=== PATIENT | female | born 1955 | race Two or more races ===

== ENCOUNTER 2021-02-09 06:51 | Inpatient (IN) | payer OTHER ==
[~2021-02-09] VITALS: Ht 162.6 cm; Wt 78.3 kg
[~2021-02-09 06:51] MED LIST: CYA100I PO; METF-370 PO; PAR20T PO; SIMV10TA84 PO
[2021-02-09] MEDS ORDERED: ceFAZolin 1GM/50ML 100 ML IV ONE (10:37)
[2021-02-09] MEDS ORDERED: NITROGLYCERIN 0.4 MG SL TAB SL PRN (12:00)
[2021-02-09] MEDS ORDERED: MORPHINE SULFATE INJECTION 2 MG/ML SYRG IV PRN (12:00)
[2021-02-09] MEDS ORDERED: HYDROcodone-ACET 5/325MG TAB PO PRN (12:00)
[2021-02-09] MEDS ORDERED: ceFAZolin 1GM/50ML 50 ML IV ONE (12:00)
[2021-02-09] MEDS ORDERED: ACETAMINOPHEN 500 MG TAB PO PRN (12:00)
[2021-02-09] MEDS ORDERED: ONDANSETRON HCL 4 MG/2 ML VIAL IV PRN (12:00)
[2021-02-09] MEDS ORDERED: LIDOCAINE 1%-Mpf/Epinephrine 1:200,000 ONE (12:01)
[2021-02-09] MEDS ORDERED: BUPIVACAINE 0.25% INJ 50ML VIAL ONE (12:01)
[2021-02-09] MEDS ORDERED: METHYLENE BLUE 0.5% 5MG/ML 10ml AMP IV ONE (12:02)
[2021-02-09] MEDS ORDERED: GLYCOPYRROLATE 0.2 MG/ML 1ML VIAL IV ONE (12:12)
[2021-02-09] MEDS ORDERED: NEOSTIGMINE 1 MG/ML INJ (10mg/10ML VIAL) IV ONE (12:12)
[2021-02-09] MEDS ORDERED: PHENYLEPHRINE HCL 10 MG/ML VL IV ONE (12:12)
[2021-02-09] MEDS ORDERED: fentaNYL CITRATE 100 MCG/2 ML VL ONE ×2 (12:18→14:41)
[2021-02-09] MEDS ORDERED: fentaNYL CITRATE 5 ML ONE (12:18)
[2021-02-09] MEDS ORDERED: MEPERIDINE HCL (25 MG/ML) 1ML VIAL ONE ×2 (12:18→13:12)
[2021-02-09] MEDS ORDERED: MIDAZOLAM HCL 2MG/2ML 2ml VIAL (1mg/ml) ONE (12:18)
[2021-02-09] MEDS ORDERED: PROPOFOL 10 MG/ML 20 ML IV ONE (12:33)
[2021-02-09] MEDS ORDERED: ROCURONIUM 10MG/ML 10ML VIAL IV ONE (12:33)
[2021-02-09] MEDS ORDERED: DexAMETHasone SOD PHOS 10MG/1ML VIAL INJ ONE (12:33)
[2021-02-09] MEDS ORDERED: hydrALAZINE HCL 20 MG/ML VL IV PRN (13:00)
[2021-02-09] MEDS ORDERED: LABETALOL HCL 5 MG/ML 4ML SYRINGE IV PRN (13:00)
[2021-02-09] MEDS ORDERED: MORPHINE SULFATE 4 MG/ML SYR/VIAL IV PRN (13:00)
[2021-02-09] MEDS ORDERED: MIDAZOLAM HCL 2MG/2ML 2ml VIAL (1mg/ml) IV PRN (13:00)
[2021-02-09] MEDS ORDERED: HYDROmorphone HCL 2 MG/ML VL IV PRN (13:00)
[2021-02-09] MEDS ORDERED: ePHEDrine SULFATE 50 MG/ML AMP IV PRN (13:00)
[2021-02-09] MEDS ORDERED: ACCU-CHEK COMFORT CURVE STRIP VI ONE (13:00)
[2021-02-09] MEDS ORDERED: ONDANSETRON HCL 4 MG/2 ML VIAL ONE (13:21)
[2021-02-09] MEDS: SODIUM CHLORIDE 0.9% 1,000 ML IV SCH ×2 (16:50→20:00)
[2021-02-09] MEDS: metFORMIN HYDROCHLORIDE 500 MG TAB PO SCH (18:38)
[2021-02-09] MEDS: MORPHINE SULFATE 4 MG/ML SYR/VIAL IV PRN (19:41)
[2021-02-09 21:58] VITALS: BP 131/68
[2021-02-10] MEDS: MORPHINE SULFATE 4 MG/ML SYR/VIAL IV PRN (04:42)
[2021-02-10 04:44] VITALS: BP 125/60
[2021-02-10 06:32] LABS: Basophils # (auto) 0 10 ^3/uL (0-0.2); Basophils % (auto) 0.5 % (0.0-2.0); Eosinophils # (auto) 0 10 ^3/uL (0-0.8); Eosinophils % (auto) 0.2 % (0.0-7.0); Hematocrit 45.2 % (36.0-46.0); Hemoglobin 15.6 g/dL (12.2-16.2); Lymphocytes # (auto) 1.4 10 ^3/uL (0.4-5.4); Lymphocytes % (auto) 19.4 % (10.0-50.0); Mean Corpuscular Hemoglobin 33.6 pg (28.0-32.0); Mean Corpuscular Hgb Conc. 34.5 g/dL (32.0-36.0); Mean Corpuscular Volume 97.4 fL (80.0-100.0); Monocytes # (auto) 0.5 10 ^3/uL (0-1.3); Monocytes % (auto) 7.6 % (0.0-12.0); Neutrophils # (auto) 5.2 10 ^3/uL (1.6-8.6); Neutrophils % (auto) 72.3 % (37.0-80.0); Red Blood Cells 4.64 10^6/uL (4.0-5.20); Red Cell Distribution Width 13.7 % (11.8-14.3); White Blood Cell 7.2 10^3/uL (4.4-10.8)
[2021-02-10 06:52] LABS: Potassium 4.2 mmol/L (3.5-5.1)
[2021-02-10 06:57] LABS: BUN/Creatinine Ratio 15.9; Calcium 8.4 mg/dL (8.5-10.1)
[2021-02-10] MEDS: metFORMIN HYDROCHLORIDE 500 MG TAB PO SCH (08:22)
[2021-02-10 09:00] VITALS: BP 134/71
[2021-02-10] MEDS ORDERED: PARoxetine 20 MG TAB PO SCH (10:00)
== END 2021-02-10 12:40 | disposition home or self-care (01) | DRG 743 ==
LOC: OVERFLOW 09:59 → EAST 17:02
PROVIDERS: ADMIT Obstetrics & Gynecology; ATTEND Obstetrics & Gynecology
PROC: 0USG4ZZ Reposition Vagina, Percutaneous Endoscopic Approach (ICD-10-PCS; 2021-02-09)
PROC: 0WQF4ZZ Repair Abdominal Wall, Percutaneous Endoscopic Approach (ICD-10-PCS; 2021-02-09)
PROC: 8E0W4CZ Robotic Assisted Procedure of Trunk Region, Percutaneous Endoscopic Approach (ICD-10-PCS; 2021-02-09)
PROC: 0UT94ZL Resection of Uterus, Supracervical, Percutaneous Endoscopic Approach (ICD-10-PCS; principal; 2021-02-09 12:22)
DX: N81.4 Uterovaginal prolapse, unspecified (principal); N73.6 Female pelvic peritoneal adhesions (postinfective); K42.9 Umbilical hernia without obstruction or gangrene
CPT/HCPCS: 36415; 80048; 82607; 82962; 85025; 86850; 86900; 86901; 87081; G0378; J0690; J1100; J2250; J2405; J2704; J3490

== ENCOUNTER 2023-05-11 06:07 | Emergency (ER) | payer OTHER ==
[~2023-05-11] VITALS: Ht 162.6 cm; Wt 73.2 kg
[~2023-05-11 06:07] MED LIST changes: +AUG875T PO; +SIMV10TA20 PO; -SIMV10TA84 PO
[2023-05-11 07:05] LABS: Basophils # (auto) 0.1 10 ^3/uL (0-0.2); Basophils % (auto) 0.9 % (0.0-2.0); Eosinophils # (auto) 0.1 10 ^3/uL (0-0.8); Eosinophils % (auto) 0.9 % (0.0-7.0); Hematocrit 45.4 % (36.0-46.0); Hemoglobin 15.4 g/dL (12.2-16.2); Lymphocytes # (auto) 1.6 10 ^3/uL (0.4-5.4); Lymphocytes % (auto) 22.6 % (10.0-50.0); Mean Corpuscular Hemoglobin 33.1 pg (28.0-32.0); Mean Corpuscular Volume 97.4 fL (80.0-100.0); Monocytes # (auto) 0.7 10 ^3/uL (0-1.3); Monocytes % (auto) 10.5 % (0.0-12.0); Neutrophils # (auto) 4.5 10 ^3/uL (1.6-8.6); Neutrophils % (auto) 65.1 % (37.0-80.0); Nucleated Red Blood Cells % 0.1 %; Red Blood Cells 4.66 10^6/uL (4.0-5.20); Red Cell Distribution Width 13.9 % (11.8-14.3)
[2023-05-11 07:11] LABS: Albumin 3.2 g/dL (3.4-5.0); Calcium 8.8 mg/dL (8.5-10.1); Potassium 4.1 mmol/L (3.5-5.1)
[2023-05-11 07:14] LABS: BUN/Creatinine Ratio 21.2 (10.0-20.0); Bilirubin, Total 0.5 mg/dL (0.2-1.0); Total Protein 7.3 g/dL (6.4-8.2)
[2023-05-11] MEDS ORDERED: traMADol HCL 50 MG TAB PO ONE (08:45)
[2023-05-11] MEDS ORDERED: CLIN150C PO (08:45)
[2023-05-11 09:07] VITALS: BP 134/63; PULSE 72; RESP 19; TEMP 98.9; O2SAT 98
== END 2023-05-11 09:11 | disposition home or self-care (01) ==
LOC: ER 06:07
DX: L03.115 Cellulitis of right lower limb (principal); E11.9 Type 2 diabetes mellitus without complications; E78.5 Hyperlipidemia, unspecified; F17.210 Nicotine dependence, cigarettes, uncomplicated; Z90.710 Acquired absence of both cervix and uterus
CPT/HCPCS: 36415; 80053; 85025; 85652; 93971